=== PATIENT | female | born 1960 | race Caucasian/White ===

== ENCOUNTER 2020-09-10 15:09 | Outpatient (CLI) | payer OTHER, SELFPAY ==
--- NOTE | ~2020-09-10 | MM_ITS ---
EXAMINATION: MM screening aimee BI w shonna HISTORY: Screening TECHNIQUE: Craniocaudal and mediolateral oblique 3-D tomosynthesis images were obtained and synthetic 2-D images were generated. CAD analysis was submitted and interpreted. COMPARISON: Comparison to multiple prior studies sequentially, with oldest reviewed study dated 02/27. BREAST PARENCHYMAL COMPOSITION: There are scattered areas of fibroglandular density. FINDINGS: There is no evidence of suspicious mass, calcification, or architectural distortion to sugg est malignancy in either breast. There has been no suspicious interval change. IMPRESSION: 1. No mammographic evidence of malignancy. 2. Recommend routine screening mammography in one year. BI-RADS Category 1: Negative Reviewed, dictated and finalized at location A. IAL EDUCATION PARAPROFESSIONAL
== END 2020-09-10 15:10 | disposition home or self-care (01) ==
LOC: ANHIMG 15:12
PROVIDERS: PCP Family Medicine; Visit Provider Obstetrics & Gynecology
DX: Z12.31 Encounter for screening mammogram for malignant neoplasm of breast (principal)
CPT/HCPCS: 77063; 77067

== ENCOUNTER 2021-09-23 07:16 | Outpatient (CLI) | payer OTHER, SELFPAY ==
--- NOTE | ~2021-09-23 | MM_ITS ---
EXAMINATION: MM screening aimee BI w shonna HISTORY: Screening mammogram TECHNIQUE: Craniocaudal and mediolateral oblique 3-D tomosynthesis images were obtained and synthetic 2-D images were generated. CAD analysis was submitted and interpreted. COMPARISON: 10/02 2020, 08/28/2019, 08/25/2018 bilateral screening mammogram examinations BREAST PARENCHYMAL COMPOSITION: There are scattered areas of fibroglandular density. FINDINGS: There is no evidence of suspicious mass, calcification, or architectural distortion to sugg est malignancy in either breast. There has been no suspicious interval change. IMPRESSION: 1. No mammographic evidence of malignancy. 2. Recommend routine screening mammography in one year. BI-RADS Category 1: Negative Reviewed, dictated and finalized at location A. VIDEO EDITOR
== END 2021-09-23 07:17 | disposition home or self-care (01) ==
PROVIDERS: PCP Family Medicine; Visit Provider Obstetrics & Gynecology
DX: Z12.31 Encounter for screening mammogram for malignant neoplasm of breast (principal)
CPT/HCPCS: 77063; 77067

== ENCOUNTER 2022-11-19 07:47 | Outpatient (CLI) | payer OTHER, SELFPAY ==
--- NOTE | ~2022-11-19 | MM_ITS ---
EXAMINATION: MM screening aimee BI w shonna HISTORY: Screening TECHNIQUE: Craniocaudal and mediolateral oblique 3-D tomosynthesis images were obtained and synthetic 2-D images were generated. CAD analysis was submitted and interpreted. COMPARISON: Comparison to multiple prior studies sequentially, with oldest reviewed study dated 08/08. BREAST PARENCHYMAL COMPOSITION: There are scattered areas of fibroglandular density. FINDINGS: There is no evidence of suspicious mass, calcification, or architectural distortion to sugg est malignancy in either breast. There has been no suspicious interval change. IMPRESSION: 1. No mammographic evidence of malignancy. 2. Recommend routine screening mammography in one year. BI-RADS Category 1: Negative Reviewed, dictated and finalized at location A. NSED CHEMICAL SPRAY TECHNICIAN
== END 2022-11-19 07:48 | disposition home or self-care (01) ==
PROVIDERS: PCP Family Medicine; Visit Provider Obstetrics & Gynecology
DX: Z12.31 Encounter for screening mammogram for malignant neoplasm of breast (principal)
CPT/HCPCS: 77063; 77067

== ENCOUNTER 2024-01-31 07:49 | Outpatient (CLI) | payer MEDICARE, SELFPAY ==
--- NOTE | ~2024-01-31 | MM_ITS ---
EXAMINATION: MM screening aimee BI w shonna HISTORY: Screening mammogram TECHNIQUE: Craniocaudal and mediolateral oblique 3-D tomosynthesis images were obtained and synthetic 2-D images were generated. CAD analysis was submitted and interpreted. COMPARISON: 11/19/2022, 09/23/2021 bilateral screening mammogram examinations BREAST PARENCHYMAL COMPOSITION: There are scattered areas of fibroglandular density. FINDINGS: There is no evidence of suspicious mass, calcification, or architectural distortion to sugg est malignancy in either breast. There has been no suspicious interval change. IMPRESSION: 1. No mammographic evidence of malignancy. 2. Recommend routine screening mammography in one year. BI-RADS Category 1: Negative Reviewed, dictated and finalized at location A.
--- NOTE | ~2024-01-31 | DEXA_ITS ---
Bone Density Report Name: DHARA CAST Age: 63 Sex: Female Ethnicity: White Date of : 1960 Indication: postmenopausal; screening for osteoporosis; height loss; Referring Provider: LISA SAHNI Study: Bone densitometry was performed. Exam Date: January 31, 2024 Accession number: [id number] Bone Density: Region BMD T-score Z-score Classification AP Spine(L1-L4) 1.323 2.5 4.3 Normal Femoral Neck (Left) 1.085 2.1 3.7 Normal Total Hip (Left) 1.316 3.1 4.3 Normal Femoral Neck (Right) 1.097 2.2 3.8 Normal Total Hip (Right) 1.137 1.6 2.9 Normal Total Hip Mean 1.227 2.4 3.6 Normal World Health Organization criteria for BMD impression classify patients as: Normal (T-score at or above -1.0), Osteopenia (T-score between -1.0 and -2.5), or Osteoporosis (T-score at or below -2.5). 10-year Fracture Risk: FRAX not reported because: All T-scores for Spine Total, Hip Total, Femoral Neck at or above -1.0 Clinical Information Provided by Patient: Patient maximum height was 68 Menopause Age: 51 Drinks caffeinated beverages Onset of menses at age 10 Number of children 1 Impression: The patient has normal bone mass. Discussion: LOW RISK OF FRACTURE; BONE DENSITY IS WELL ABOVE THE MINIMUM DESIRABLE LEVEL AND ABOVE AVERAGE FOR AGE AND SEX AT ALL SKELETAL SITES TESTED. This person's bone density is above expected limits for age and sex. This is rarely clinically significant, but should be pursued if there are significant musculoskeletal complaints. The patient should follow a healthful lifestyle (good nutrition with adequate calcium and vitamin D, and appropriate weight-bearing exercise). Follow-Up: Consider repeating this study in 5 years or sooner if there is some new clinical indication. Reported by: ANGIE on 02/01/2024 3:30:00 PM. Reviewed, dictated and finalized at location AJoão WALSH
== END 2024-01-31 07:50 | disposition home or self-care (01) ==
LOC: ANHIMG 07:54
PROVIDERS: Visit Provider Obstetrics & Gynecology
DX: Z12.31 Encounter for screening mammogram for malignant neoplasm of breast (principal); M81.0 Age-related osteoporosis without current pathological fracture
CPT/HCPCS: 77063; 77067; 77080

== ENCOUNTER 2024-12-25 11:49 | Outpatient (CLI) | payer MEDICARE, SELFPAY ==
--- NOTE | ~2024-12-25 | US_ITS ---
EXAMINATION: US pelvic complete w TV INDICATION: Postmenopausal bleeding Comparison:No prior studies for comparison. TECHNIQUE: Multiple transabdominal and endovaginal sonographic images of the pelvis performed. FINDINGS: The uterus measures 5.6 x 3.5 x 4.1 cm. There is an echogenic focus in the uterus measuring 6 mm, likely due to underlying fibroid changes. The endometrial complex measures 3.4 mm. The ovaries are not visualized. There is no free fluid in the pelvis. There are no abnormal masses seen on either side. IMPRESSION: 1. 6 mm calcification in the uterus, likely related to fibroid changes. Reviewed, dictated and finalized at location B. ESALE BUYER
== END 2024-12-25 11:50 | disposition home or self-care (01) ==
LOC: MICIMG 11:50
PROVIDERS: Visit Provider Obstetrics & Gynecology
DX: N95.0 Postmenopausal bleeding (principal); D25.9 Leiomyoma of uterus, unspecified
CPT/HCPCS: 76830; 76856

== ENCOUNTER 2025-01-16 01:09 | Day surgery (SDC) | payer MEDICARE, SELFPAY ==
[2025-01-01 16:18] VITALS: BMI 45.9
--- NOTE | 2025-01-01 16:29 | PC.NURSE ---
Addendum entered by Yuki Morrell RN 01/03/25 15:00: Pt called to notify time change, pulled up in system, rereviewed new instructions w date and time for her, she understands JRElmaN see below Report to the Outpatient Waiting Room, entrance under the green pavilion located off [facility], at time __07:30am on date __01/16/25 . Planned Procedure Time: _06:00am .? Time changes happen often and if your time is changed the preop area will call you the afternoon before. - You and your visitor will be asked to self-screen and do not enter if you have any COVID symptoms. Please call surgeon if you need to reschedule. - A mask is optional within the hospital at this time. Patients may have clear liquids (water, carbonated beverages, clear teas, apple juice) until 3 hours prior to surgery with a maximum of 20 ounces. - No food from midnight until time of surgery and no smoking, or chewing tobacco (or any form of nicotine). No chewing gum, candy or mints. (0430am) Original Note: Report to the Outpatient Waiting Room, entrance under the green pavilion located off [facility], at time __1000am on date __01/16/25 . Planned Procedure Time: __1200 .? Time changes happen often and if your time is changed the preop area will call you the afternoon before. - You and your visitor will be asked to self-screen and do not enter if you have any COVID symptoms. Please call surgeon if you need to reschedule. - A mask is optional within the hospital at this time. Patients may have clear liquids (water, carbonated beverages, clear teas, apple juice) until 3 hours prior to surgery with a maximum of 20 ounces. - No food from midnight until time of surgery and no smoking, or chewing tobacco (or any form of nicotine). No chewing gum, candy or mints. (0900am) Take only the following medications with a SIP of water on the morning of surgery: _None DO NOT STOP ANY OF YOUR OTHER PRESCRIPTION MEDICATIONS PRIOR TO SURGERY EXCEPT THE FOLLOWING Dr Lucas to give instructions on Eliquis prior to surgery - to get instructions Hold all vitamins and supplements for 3 days per anesthesiologist.Date to take last dose 01/12/25 Please no make-up, nail latvian, hairspray, perfume, deodorant, or body powder the day of surgery.? No jewelry (including any body piercings) or valuables the day of surgery, leave them at home.? Please take a shower or bath the night before, or the morning of, surgery with an antibacterial soap.? Wear comfortable, loose fitting clothing.? - Jewelry must be removed prior to entering the operating room.? Rings and piercings that are not removed may be cut off. - The hospital will not accept responsibility for valuables.? - Please leave all valuables, including medications, at home the day of surgery. If you are going home after surgery, a licensed route sales delivery driver must drive you home.? - NO public transportation without another adult if you receive anesthesia. - We recommend that an adult stay with you for 24 hours following discharge. - We also recommend that you do not drive, make important decision, drink alcoholic beverages, or take any drugs that were not prescribed by your health care provider for at least 24 hours after your discharge time. Follow any additional instructions given to you from your surgeon. Telephone instructions given to __ Patient and asked if any additional questions and then verbalized understanding. Patient advised to call surgeon office or pre surgery nurse liaison [phone] if any additional questions.
--- OUTSIDE RECORDS SUMMARY | 2025-01-16 01:12 | XMS_ITS | Continuity of Care Document ---
Author Organization [facility] Address [address] [place] [address] Phone Care Team Providers Care Barrel Tester And Drainer Name Role Phone Taylor OD, French Unavailable Unavailable Procedures Procedure Date Eye Exam & Treatment Refraction Eye Exam & Treatment Refraction Office/outpatient Visit, Est Eye Exam Established Pt Progressive Lens, Plastic Frames Deluxe Tint Photochromatic, Plastic Tint Photochromatic, Plastic Eye Exam & Treatment Refraction Advance Directives Directive Yes / No Effective Date File Name No Information Encounters Encounter Description Practice Location Reason(s) For Visit Diagnoses Date Provider Providers Copied on Encounter [facility], [address] [place] [address] [address], [place], [place], [id number], tel:[phone] [facility] No Information 6-201 0 Taylor OD French. [address] , [address], [place], [address], [place]. tel:[phone] [facility], [address], [place], [place], [id number], [place] tel:[phone] [facility] No Information 9-200 9 Taylor OD French. [address] , [address], [place], [address], [place]. tel:[phone] Office/outpat ient Visit, Est [facility], [address], [place], [place], [id number], [place] tel:[phone] [facility] No Information 5-200 9 Taylro OD French. [address] , [address], [place], [place], [facility], . tel:[phone] [facility], [address], [place], [place], [address], [place] tel:[phone] [facility] No Information 5200 9 Taylor OD French. [address] , [address], [place], [address], [place]. tel:[phone] [facility], [id number] [place] [address] [address], [place], [place], [id number], [place] tel:[phone] [facility] No Information 0 8-200 8 [facility] . [address] [facility], [address], [place], [place], [id number], . tel:[phone] Referring Provider: French Taylor OD A, [facility], [place], [address]. tel:[phone] sulting Provider: Shante Newton, [address] [place] [address], [facility]. tel:[phone] [facility], [address] [place] [address] [address], [place], [place], [id number], [place] tel:[phone] [facility] No Information 0 3-200 8 Taylor OD French. [address] , [address], [place], [address], [place]. tel:[phone] Family History Family Member Type Diagnosis Age At Onset No Information Payers Payer name Insurance type Covered libertarian ID Lisa conde(s) [employer] Plan CI [id number] Social History Type Description Quantity Date Captured Comments Sex Female Smoking Status No Information Chief Complaint And Reason For Visit No Information Reason For Referral Reason For Referral No Information History Of Present Illness Encounter Date Complaint History Of Prese nt Illness No Information Functional Status Date Functional Assessmen t No Information Instructions Date Instruction Additional Infor mation No Information Assessments Type Assessment Date No Information Patient Care Teams Name Effective Dates (start - stop) Status Members No Information
--- OUTSIDE RECORDS SUMMARY | 2025-01-16 01:12 | XMS_ITS | Clinical Summary ---
Author Organization [facility] Address [address] [place] [id number] Care Team Providers Care Quarry Worker Name Role Phone Jorge Luis Elkins MD Primary Care Provider [phone] Allergies Active Allergy Reactions Criticality Noted Date Comments Cephalexin Other (See comments) Low 12/02/2023 Yeast infection Penicillins Diarrhea,Nausea only Low 01/27/2013 Medications Eliquis 5 mg tablet Take 1 tablet (5 mg total) by mouth 2 (two) times a day Active furosemide (LASIX) 20 mg tablet Take 1 tablet (20 mg total) by mouth daily 05/29/2024 Active multivitamin (Daily Multi-Vitamin) tablet Active niacin ER (NIASPAN) 500 mg CR tablet Take 1 tablet (500 mg total) by mouth 11/15/2015 Active nystatin powder APPLY TO AFFECTED AREA TWICE A DAY NEEDED FOR RASH 09/01/2023 Active potassium citrate 99 mg capsule Take 1 tablet by mouth daily as needed Active simvastatin (ZOCOR) 40 mg tablet Take 1 tablet (40 mg total) by mouth nightly Active ascorbic acid-collagen (Collagen Plus Vitamin C) 125-740 mg capsule Active fish,flaxseed oil-e.prim-bcur r 400-400-200 mg capsule Active glucosamine-cho ndroit-vit C-Mn capsule Take 1 capsule by mouth daily Active UNABLE TO FIND Take 1 Scoop by mouth daily Active OMEGA-3 FATTY ACIDS-FISH OIL ORAL Take by mouth daily Active Active Problems Problem Noted Date Diagnosed Date Cellulitis of left lower extremity 09/17/2023 Gastroesophageal reflux disease without esophagi tis 04/04/2021 Neck pain 07/12/2020 Knee pain 01/14/2018 Knee osteoarthritis 09/09/2015 Morbid obesity 09/09/2015 Dermatitis 02/27/2015 Knee pain, left 01/24/2015 Acute shoulder pain 08/07/2014 Hyperlipidemia 01/27/2013 Submucous leiomyoma of uterus 01/27/2013 Encounters Date Type Department Care Team Description 11/30/2024 8:00 AM CINDER CRANE OPERATOR Office Visit [facility] [address] [facility] [address] [place] [address] Megan Mayes PA Right knee pain, unspecified chronicity (Primary Dx); Left knee pain, unspecified chronicity; Primary osteoarthritis of knees, bilateral 11/30/2024 7:30 AM CINDER CRANE OPERATOR - 11/30/2024 11:59 PM CINDER CRANE OPERATOR Hospital Encounter [facility] [address] [facility] [address] [place] [id number] Right knee pain, unspecified chronicity; Left knee pain, unspecified chronicity Discharge Disposition: Discharge to home or self care from Last 3 Months Immunizations Immunization Administration Dates Next Due Influenza, Unspecified 08/22/2024,2022,08/17/2022,2020,08/12/2020,08/11/2018 [employer] ([employer]) SARS-CoV-2 Vaccination 05/16/2021 Pneumococcal Conjugate PCV 13 10/02/2019 RSV Vaccine, Pref, Recombina nt, Subunit, Adjuvanted, PF, IM (Arexvy) 08/02/2023 Tdap 05/30/2024 ZOSTER Recombinant 01/04/2020,10/26/2019 Family History Medical History Relation Name Comments Arthritis Other Family history of arthritis - (Added by TW Conv) Deep vein thrombosis Other Family history of deep venous thrombosis - (Added by TW Conv) Diabetes Other Family history of diabetes mellitus - (Added by TW Conv) Scoliosis Other Family history of scoliosis - (Added by TW Conv) Relation Name Status Comments Other Social History Tobacco Use Types Packs/Day Years Used Date Smoking Tobacco: Never Smokeless Tobacco: Never Tobacco Cessation:Counseling Given: Not Answered Comments Unknown Sex and Gender Information Value Date Recorded Sex Assigned at Not on file Legal Sex Female 11:19 AM CINDER CRANE OPERATOR Gender Identity Not on file Sexual Orientation Not on file Obstetrics History Last Filed Vital Signs Vital Sign Reading Time Taken Comments Blood Pressure - - Pulse - - Temperature - - Respiratory Rate - - Oxygen Saturation - - Inhaled Oxygen Concentration - - Weight 140.6 kg (310 lb) 11/30/2024 8:32 AM CINDER CRANE OPERATOR Height 172.7 cm (5' 8 ) 11/30/2024 8:32 AM CINDER CRANE OPERATOR Body Mass Index 47.14 11/30/2024 8:32 AM CINDER CRANE OPERATOR Plan of Treatment Health Maintenance Due Date Last Done Comments Breast Cancer Screening-Mammogram 1960 Colon Cancer Screening-Colonoscopy 1960 Depression Screening 1960 Fall Risk Assessment 1960 Hepatitis C Screening 1960 Osteoporosis Screening-Bone Density Scan 1960 Hepatitis B Screening 1976 Pneumococcal vaccine 65+ (2 of 2 - PPSV23) 10/02/2020 10/02/2019 Well Visit 65+ 2023 Covid-19 Vaccine (3 - 2023-2 5 season) 2024 11/07/2021, 05/16/2021 DTaP/Tdap/Td Vaccine (2 - Td or Tdap) 05/30/2034 05/30/2024 Zoster Vaccine Completed 01/04/2020, 10/26/2019 Influenza Vaccine Completed 08/22/2024, , 08/17/2022, Additional history exists Procedures Procedure Name Priority Date/Time Associated Diagnosis Comments XR KNEE LEFT 4 OR MORE VIEWS Schedule Routine, Read Routine (OP Routine) 11/30/2024 8:05 AM CINDER CRANE OPERATOR Left knee pain, unspecified chronicity XR KNEE RIGHT 4 OR MORE VIEWS Schedule Routine, Read Routine (OP Routine) 11/30/2024 8:05 AM CINDER CRANE OPERATOR Right knee pain, unspecified chronicity MA ARTHROCENTESIS ASPIR&/INJ MAJOR JT/BURSA W/O US Routine 11/30/2024 8:00 AM CINDER CRANE OPERATOR Primary osteoarthritis of knees, bilateral from Last 3 Months Results * XR Knee Right 4 or More Views (11/30/2024 8:05 AM CINDER CRANE OPERATOR) Anatomical Region Laterality Modality Lower Extremities, Knee Right Computed Radiography 11/30/2024 8:08 AM CINDER CRANE OPERATOR Impressions 11/30/2024 8:08 AM CINDER CRANE OPERATOR 1. Progressive severe medial compartment predominant tricompartmental osteoarthritis of both knees. Electronically signed by: Bj Mack M.D. Narrative 11/30/2024 8:08 AM CINDER CRANE OPERATOR EXAMINATION: XR KNEE RIGHT 4 OR MORE VIEWS, XR KNEE LEFT 4 OR MORE VIEWS HISTORY: Bilateral knee pain FINDINGS: 4 view examination of the right and left knee are read with comparison to 01/24/2018. There is progressive severe medial compartment predominant tricompartmental osteoarthritis of both knees with uqru-ge-izju contact bilaterally. Trace bilateral joint effusions. Small ossific loose bodies in the posterior intercondylar notch on the right. The no fracture or dislocation. Procedure Note Bj Byrd MD - 11/30/2024 EXAMINATION: XR KNEE RIGHT 4 OR MORE VIEWS, XR KNEE LEFT 4 OR MORE VIEWS HISTORY: Bilateral knee pain FINDINGS: 4 view examination of the right and left knee are read with comparison to 01/24/2018. There is progressive severe medial compartment predominant tricompartmental osteoarthritis of both knees with rwrq-aq-nvxv contact bilaterally. Trace bilateral joint effusions. Small ossific loose bodies in the posterior intercondylar notch on the right. The no fracture or dislocation. IMPRESSION: 1. Progressive severe medial compartment predominant tricompartmental osteoarthritis of both knees. Electronically signed by: Bj Mack M.D. Megan SALVADOR IMG XR PROCEDURES Astrid l Result * XR Knee Left 4 or More Views (11/30/2024 8:05 AM CINDER CRANE OPERATOR) Anatomical Region Laterality Modality Lower Extremities, Knee Left Computed Radiography 11/30/2024 8:08 AM CINDER CRANE OPERATOR Impressions 11/30/2024 8:08 AM CINDER CRANE OPERATOR 1. Progressive severe medial compartment predominant tricompartmental osteoarthritis of both knees. Electronically signed by: Bj Mack M.D. Narrative 11/30/2024 8:08 AM CINDER CRANE OPERATOR EXAMINATION: XR KNEE RIGHT 4 OR MORE VIEWS, XR KNEE LEFT 4 OR MORE VIEWS HISTORY: Bilateral knee pain FINDINGS: 4 view examination of the right and left knee are read with comparison to 01/24/2018. There is progressive severe medial compartment predominant tricompartmental osteoarthritis of both knees with vutj-as-cpov contact bilaterally. Trace bilateral joint effusions. Small ossific loose bodies in the posterior intercondylar notch on the right. The no fracture or dislocation. Procedure Note Bj Byrd MD - 11/30/2024 EXAMINATION: XR KNEE RIGHT 4 OR MORE VIEWS, XR KNEE LEFT 4 OR MORE VIEWS HISTORY: Bilateral knee pain FINDINGS: 4 view examination of the right and left knee are read with comparison to 01/24/2018. There is progressive severe medial compartment predominant tricompartmental osteoarthritis of both knees with nqfb-ja-oibp contact bilaterally. Trace bilateral joint effusions. Small ossific loose bodies in the posterior intercondylar notch on the right. The no fracture or dislocation. IMPRESSION: 1. Progressive severe medial compartment predominant tricompartmental osteoarthritis of both knees. Electronically signed by: Bj Mack M.D. us Megan SALVADOR IMG XR PROCEDURES Astrid l Result * MA ARTHROCENTESIS ASPIR&/INJ MAJOR JT/BURSA W/O US (11/30/2024 8:00 AM CINDER CRANE OPERATOR) Narrative Megan Mayes PA - 11/30/2024 8:00 AM CINDER CRANE OPERATOR Megan Mayes PA 11/30/2024 9:10 AM Large Joint Injection: R knee Performed by: Megan Mayes PA Authorized by: Megan Mayes PA Large Joint Injection/Aspiration: Consent Given by: Patient Site marked: the procedure site was marked Verbal consent obtained: Yes Supporting Documentation: Indications: Pain Procedure Details: Location: Knee Site: R knee Prep: patient was prepped and draped in usual sterile fashion Needle Size: 22 G Approach: Superior lateral Medications: 80 mg triamcinolone 40 mg/mL; 4 mL BUPivacaine HCl 0.25 % (2.5 mg/mL) Patient tolerance: Patient tolerated the procedure well with no immediate complications us Megan SALVADOR IN CLINIC/BEDSIDE [facility] Final Result from Last 3 Months Insurance T MEDICARE AET MEDICARE Care Teams Quarry Worker Relationship Specialty Start Date End Date Jorge Luis Elkins MD PCP - General Family Practice 06/26/24
--- OUTSIDE RECORDS SUMMARY | 2025-01-16 01:12 | XMS_ITS | Clinical Summary ---
Author Organization [facility] Address [address] [place] [address] Care Team Providers Care Rivet Hammer Machine Operator Name Role Phone Jorge Luis Elkins MD Primary Care Provider [phone] Ovi Lucas MD Unavailable Jorge Luis Barcenas MD Unavailable [phone] Placido Rodriguez DPPratibha Unavailable [phone] Duy Grande MD Unavailable [phone] Allergies Active Allergy Reactions Criticality Noted Date Comments Cephalexin Other (see comment) 12/02/2023 Yeast infection Penicillins Diarrhea,Nausea Only 01/27/2013 Medications Glucosamine-Chondr oit-Vit C-Mn (GLUCOSAMINE CHONDR 1500 COMPLX) Cap Take 1 capsule by mouth daily. Active Multiple Vitamins tablet Take 1 tablet by mouth daily. Active niacin CR 500 MG tablet Take 1 tablet (500 mg total) by mouth. 11/15/19 16 Active Hannah, Morinda citrifolia, (HANNAH JUICE) 3000 MG/30ML Liquid Activ e [place]-3 Fatty Acids (FISH OIL) 645 MG Cap Take by mouth daily. Active Potassium Citrate 99 MG Cap Take 2 tablets by mouth daily as needed (When taking furosemide). Active nystatin (MYCOSTATIN) powder APPLY TO AFFECTED AREA TWICE A DAY NEEDED FOR RASH 09/01/20 23 Active NON FORMULARY Take 1 Scoop by mouth daily. Collagen Peptides Power- Mix with water Active furosemide (LASIX) 20 MG tabletIndications: Localized edema Take 1 tablet (20 mg total) by mouth daily. 90 tablet 2 05/29/20 24 Active Additional Information Patient not taking.Reported on 12/06/2024 apixaban (ELIQUIS) 5 MG tabletIndications: Deep vein thrombosis (DVT) of proximal lower extremity, unspecified chronicity, unspecified laterality (CMS/HCC HHS/HCC) Take 1 tablet (5 mg total) by mouth 2 (two) times daily. 180 tablet 1 08/15/20 24 Active Collagen-Vitamin C (COLLAGEN PLUS VITAMIN C) 740-125 MG Cap Active simvastatin (ZOCOR) 40 MG tabletIndications: Mixed hyperlipidemia Take 1 tablet (40 mg total) by mouth nightly at bedtime. at bedtime 90 tablet 1 12/06/19 25 Active Active Problems Problem Noted Date Diagnosed Date Cellulitis of left lower extremity 09/17/2023 Gastroesophageal reflux disease without esophagi tis 04/04/2021 Neck pain 07/12/2020 Knee osteoarthritis 09/09/2015 Morbid obesity 09/09/2015 Dermatitis 02/27/2015 Knee pain, left 01/24/2015 Acute shoulder pain, unspecified laterality 07/11 Hyperlipidemia 01/27/2013 Submucous leiomyoma of uterus 01/27/2013 Resolved Problems Problem Noted Date Diagnosed Date Resolved Date Encounter for preventive health examination 01/27/2013 07/19/2020 Encounters Date Type Department Care Team Description 12/25/2024 Scan HEALTH INFO SRVCS Scanned, Doc [facility] Ultrasound (SCAN) 12/06/2024 8:00 AM SLUBBER FRAME CHANGER Office Visit [facility] Family Medicine [place] [phone] Jorge Luis Elkins MD Back Pain (Patient is present for follow up to her back pain) 12/06/2024 Travel 12/02/2024 Patient Outreach [facility] Medicine [place] [phone] Jorge Luis Elkins MD Pre-visit Gap Closure from Last 3 Months Immunizations Name Administration Dates Next Due Arexvy Respiratory Syncytial Virus (RSV, adjuvanted) 0.5 mL, PF 08/02/2023 Influenza (Generic) 08/11/2018 Influenza Adult (Generic) 08/22/2024,04/2023,08/17/2022,2020,08/12/2020 OSVALDO (CINTHYA & CINTHYA) COVID-19 AD26 VACCINE 0.5 ML IM SUSP 05/16/2021 MODERNA COVID-19 (FAMILY SERVICE ASSISTANT MICHELLE YESI), MRNA, LNP-S, PF, 50 MCG/ 0.25 ML DOSE 11/07/2021 Pneumococcal (Prevnar 13) 10/02/2019 Shingrix 01/04/2020,10/26/2019 Tdap (Generic) 05/30/2024 Family History Medical History Relation Comments colon polyps Father Diabetes Mother colon polyps Mother Diabetes Paternal Grandfather Relation Status Comments Father Alive Mother Paternal Grandfather Social History Tobacco Use Types Packs/Day Years Used Date Smoking Tobacco: Never Passive Smoke Exposure: Past Smokeless Tobacco: Never Tobacco Cessation:Counseling Given: No Alcohol Use Standard Drinks/Week Comments No 0 (1 standard drink = 0.6 oz pur e alcohol) AUDIT-C Answer Date Recorded Frequency of Alcohol Consumption Never 09/06/2019 Average Number of Drinks Not on file 019 Frequency of Binge Drinking Not on file 08/10 PHQ-2 Answer Date Recorded Patient Health Questionnaire-2 Score 0 12/06/2024 Comments No Sex and Gender Information Value Date Recorded Sex Assigned at Not on file Legal Sex Female 8:13 PM CDT Gender Identity Not on file Sexual Orientation Not on file Occupation Industry Job Start Date Job End Date [employer] Not on file Not on file Not on file Last Filed Vital Signs Vital Sign Reading Time Taken Comments Blood Pressure 134/84 12/06/2024 8:21 AM SLUBBER FRAME CHANGER Pulse 74 12/06/2024 8:04 AM SLUBBER FRAME CHANGER Temperature 36.4 C (97.6 F) 12/06/2024 8:04 AM SLUBBER FRAME CHANGER Respiratory Rate 98 12/06/2024 8:04 AM SLUBBER FRAME CHANGER Oxygen Saturation 98% 09/12/2024 9:40 AM SLUBBER FRAME CHANGER Inhaled Oxygen Concentration - - Weight 139.8 kg (308 lb 3.2 oz) 12/06/2024 8:04 AM SLUBBER FRAME CHANGER Height 172.7 cm (5' 8 ) 07/26/2024 1:33 PM CDT Body Mass Index 46.86 07/26/2024 1:33 PM CDT Plan of Treatment Upcoming Encounters Date Type Department Care Team (Late st Contact Info) Description 06/11/2025 8:00 AM CDT Office Visit [facility] Family [facility] - [place] [address] [place] [phone] Jorge Luis Elkins MD [address] [place] [address] Health Maintenance Due Date Last Done Comments Hepatitis C 1978 Annual Medicare Wellness Visit 2023 Pneumococcal Vaccine: 65+ Years (2 of 2 - PPSV23 or PCV20) 2023 10/02/2019 COVID-19 Vaccine (3 - 2023- season) 2024 11/07/2021, 05/16/2021 Mammogram Screening 01/30/2026 01/31/2024, 11/19/2022, 09/10/2020 Colorectal Cancer Screening Colonoscopy (10 Years) 12/09/2026 12/09/2016 DTaP, Tdap and Td Vaccines (2 - Td or Tdap) 05/30/2034 05/30/2024 Zoster Vaccines Completed 01/04/2020, 10/26/2019 RSV Immunization or 60+ Years Completed 08/02/2023 Dexa Scan (General) Completed 01/31/2024 Influenza Adult Completed 08/22/2024, 04/2023, 08/17/2022, Additional history exists PHQ-2 (Physician [place]) Completed 12/06/2024 Meningococcal B Vaccine Aged Out No l onger eligible based on patient's age to complete this topic Meningococcal Vaccine Aged Out No vandana zaida eligible based on patient's age to complete this topic RSV Immunizations Under 20 Months Aged Out No longer eligible based on patient's age to complete this topic Procedures Procedure Name Priority Date/Time Associated Diagnosis Comments ULTRASOUND GENERIC (SCAN ORDER) 12/25/2024 BONE DENSITY GENERIC (SCAN ORDER) 01/31/2024 MAMMOGRAM GENERIC (SCAN ORDER) Routine 01/31/2024 COLONOSCOPY Routine 12/09/2016 12:00 AM SLUBBER FRAME CHANGER from Last 3 Months or Most Recently Relevant to Health Maintenance Results * ULTRASOUND GENERIC (SCAN ORDER) (12/25/2024) Anatomical Region Laterality Modality Other 12/25/2024 us [facility] Scanned SCANNING Final Resu lt * BONE DENSITY GENERIC (SCAN ORDER) (01/31/2024) Anatomical Region Laterality Modality Other 01/31/2024 us Doc Med Group Scanned SCANNING Final Resu lt * MAMMOGRAM (01/31/2024) Anatomical Region Laterality Modality Other us Doc Med Group Scanned SCANNING Final Resu lt * Colonoscopy (12/09/2016 12:00 AM SLUBBER FRAME CHANGER) 12/09/2016 12/09/2016 Narrative TOUCHWORKS TO EPIC CONVERSION - 12/09/2016 12:00 AM SLUBBER FRAME CHANGER Documented hx of procedure Procedure Note , Generic ConversionMD - 01/26/2019 Documented hx of procedure us Generic Conversion Md [facility] PROCEDURE ORDERABLES Final Result TOUCHWORKS TO EPIC CONVERSION from Last 3 Months or Most Recently Relevant to Health Maintenance Insurance AETNA AETNA Care Teams Rivet Hammer Machine Operator Relationship Specialty Start Date End Date Jorge Luis Elkins MD [address] [place] [id number] PCP - General FAMILY PRACTICE 12/02/23 Ovi Lucas MD [id number] [place] [address] OBGYN 12/02/23 Jorge Luis Barcenas MD [address] [place] [phone] Referring Physician PLASTIC SURGERY 12/02/23 Placido Rodriguez DPM [facility] [place] [address] [place] [address] PODIATRY/SURGERY 12/02/23 Duy Grande MD [address] [place] [address] Referring Physician DERMATOLOGY 12/02/23
--- OUTSIDE RECORDS SUMMARY | 2025-01-16 01:12 | XMS_ITS | Referral Summary ---
Author Organization [facility] Address [address] [place] [phone] Care Team Providers Care Architect Naval Name Role Phone Jorge Luis Elkins MD Primary Care Provider [phone] Encounters Date Type Department Care Team Description 11/30/2024 7:30 AM REGISTERED NURSE SUPERVISOR - 11/30/2024 11:59 PM REGISTERED NURSE SUPERVISOR Hospital Encounter [id number] [address] [place] [address] [address] [place] [address] Right knee pain, unspecified chronicity; Left knee pain, unspecified chronicity Discharge Disposition: Discharge to home or self care 11/30/2024 8:00 AM REGISTERED NURSE SUPERVISOR Office Visit [facility] Orthopaedic Surgery [address] [facility] [address] [place] [address] Megan Mayes PA Right knee pain, unspecified chronicity (Primary Dx); Left knee pain, unspecified chronicity; Primary osteoarthritis of knees, bilateral from Last 3 Months Allergies Active Allergy Reactions Criticality Noted Date [...] Hyperlipidemia 01/27/2013 Submucous leiomyoma of uterus 01/27/2013 Immunizations Immunization Administration Dates Next Due Influenza, Unspecified 08/22/2024,2022,08/17/2022,2020,08/12/2020,08/11/2018 Wiser (formerly WisePricer) (J&J) SARS-CoV-2 Vaccination 05/16/2021 Pneumococcal Conjugate PCV 13 10/02/2019 RSV Vaccine, Pref, Recombina nt, Subunit, Adjuvanted, PF, IM (Arexvy) 08/02/2023 Tdap 05/30/2024 ZOSTER Recombinant 01/04/2020,10/26/2019 Social History Tobacco Use Types Packs/Day Years Used Date Smoking Tobacco: Never Smokeless Tobacco: Never Tobacco Cessation:Counseling Given: Not Answered Comments Unknown Sex and Gender Information Value Date Recorded Sex Assigned at Not on file Legal Sex Female 11:19 AM REGISTERED NURSE SUPERVISOR Gender Identity Not on file Sexual Orientation Not on file Last Filed Vital Signs Vital Sign Reading Time Taken Comments Blood Pressure - - Pulse - - Temperature - - Respiratory Rate - - Oxygen Saturation - - Inhaled Oxygen Concentration - - Weight 140.6 kg (310 lb) 11/30/2024 8:32 AM REGISTERED NURSE SUPERVISOR Height 172.7 cm (5' 8 ) 11/30/2024 8:32 AM REGISTERED NURSE SUPERVISOR Body Mass Index 47.14 11/30/2024 8:32 AM REGISTERED NURSE SUPERVISOR Plan of Treatment Not on file Procedures Procedure Name Priority Date/Time Associated Diagnosis Comments XR KNEE LEFT 4 OR MORE VIEWS Schedule Routine, Read Routine (OP Routine) 11/30/2024 8:05 AM REGISTERED NURSE SUPERVISOR Left knee pain, unspecified chronicity XR KNEE RIGHT 4 OR MORE VIEWS Schedule Routine, Read Routine (OP Routine) 11/30/2024 8:05 AM REGISTERED NURSE SUPERVISOR Right knee pain, unspecified chronicity DE ARTHROCENTESIS ASPIR&/INJ MAJOR JT/BURSA W/O US Routine 11/30/2024 8:00 AM REGISTERED NURSE SUPERVISOR Primary osteoarthritis of knees, bilateral from Last 3 Months Results * XR Knee Right 4 or More Views (11/30/2024 8:05 AM REGISTERED NURSE SUPERVISOR) Anatomical Region Laterality Modality Lower Extremities, Knee Right Computed Radiography 11/30/2024 8:08 AM REGISTERED NURSE SUPERVISOR Impressions 11/30/2024 8:08 AM REGISTERED NURSE SUPERVISOR 1. Progressive severe medial compartment predominant tricompartmental osteoarthritis of both knees. Electronically signed by: Bj Mack M.D. Narrative 11/30/2024 8:08 AM REGISTERED NURSE SUPERVISOR EXAMINATION: XR KNEE RIGHT 4 OR MORE VIEWS, XR KNEE LEFT 4 OR MORE VIEWS HISTORY: Bilateral knee pain FINDINGS: 4 view examination of the right and left knee are read with comparison to 01/24/2018. There is progressive severe medial compartment predominant tricompartmental osteoarthritis of both knees with fxqz-vs-eody contact bilaterally. Trace bilateral joint effusions. Small ossific loose bodies in the posterior intercondylar notch on the right. The no fracture or dislocation. Procedure Note Philip Mack, Bj Taylor MD - 11/30/2024 EXAMINATION: XR KNEE RIGHT 4 OR MORE VIEWS, XR KNEE LEFT 4 OR MORE VIEWS HISTORY: Bilateral knee pain FINDINGS: 4 view examination of the right and left knee are read with comparison to 01/24/2018. There is progressive severe medial compartment predominant tricompartmental osteoarthritis of both knees with ulvz-xb-leno contact bilaterally. Trace bilateral joint effusions. Small ossific loose bodies in the posterior intercondylar notch on the right. The no fracture or dislocation. IMPRESSION: 1. Progressive severe medial compartment predominant tricompartmental osteoarthritis of both knees. Electronically signed by: Bj Mack M.D. Megan SALVADOR IMG XR PROCEDURES Astrid l Result * XR Knee Left 4 or More Views (11/30/2024 8:05 AM REGISTERED NURSE SUPERVISOR) Anatomical Region Laterality Modality Lower Extremities, Knee Left Computed Radiography 11/30/2024 8:08 AM REGISTERED NURSE SUPERVISOR Impressions 11/30/2024 8:08 AM REGISTERED NURSE SUPERVISOR 1. Progressive severe medial compartment predominant tricompartmental osteoarthritis of both knees. Electronically signed by: Bj Mack M.D. Narrative 11/30/2024 8:08 AM REGISTERED NURSE SUPERVISOR EXAMINATION: XR KNEE RIGHT 4 OR MORE VIEWS, XR KNEE LEFT 4 OR MORE VIEWS HISTORY: Bilateral knee pain FINDINGS: 4 view examination of the right and left knee are read with comparison to 01/24/2018. There is progressive severe medial compartment predominant tricompartmental osteoarthritis of both knees with jarr-os-naew contact bilaterally. Trace bilateral joint effusions. Small [...] predominant tricompartmental osteoarthritis of both knees with ifhy-gs-uvxo contact bilaterally. Trace bilateral joint effusions. Small ossific loose bodies in the posterior intercondylar notch on the right. The no fracture or dislocation. IMPRESSION: 1. Progressive severe medial compartment predominant tricompartmental osteoarthritis of both knees. Electronically signed by: Bj Mack M.D. us Megan SALVADOR IMG XR PROCEDURES Astrid l Result * DE ARTHROCENTESIS ASPIR&/INJ MAJOR JT/BURSA W/O US (11/30/2024 8:00 AM REGISTERED NURSE SUPERVISOR) Narrative Megan Mayes PA - 11/30/2024 8:00 AM REGISTERED NURSE SUPERVISOR Megan Mayes PA 11/30/2024 9:10 AM Large [...] the procedure well with no immediate complications Megan SALVADOR IN CLINIC/BEDSIDE [facility] Final Result from Last 3 Months Insurance [facility] MEDICARE AETNA MEDICARE Care Teams Architect Naval Relationship Specialty Start Date End Date Jorge Luis Elkins MD PCP - General Family Practice 06/26/24
--- NOTE | 2025-01-16 02:09 | PM.IMHP ---
H&P: HPI History of Present Illness Date/Time: 01/16/25 02:09 Chief Complaint: Bleeding Narrative: 64 y/o with postmenopausal bleeding. Ultrasound shows a 3.4 mm thick endometrial complex. There is no free fluid. There is a 6 mm calcification in the uterus. Review of Systems Review of Systems: All systems reviewed & are unremarkable except as noted in HPI and below PMFSH Past Medical History Medical History History of DVT (deep vein thrombosis) History of chronic hypertension History of hyperlipidemia Surgical History Surgical History History of knee surgery History of toe surgery History of carpal tunnel surgery Social History Social History Smoking status: Never smoker Alcohol intake: never Substance use: never Living arrangements: alone Spiritual care concerns: No Meds Home Medications and Allergies Home Medications ?Medication ?Instructions ?Recorded ?Confirmed ?Type apixaban 5 mg tablet (Eliquis) 5 mg PO Q12H 01/01/25 01/01/25 History furosemide 20 mg tablet 20 mg PO DAILY 01/01/25 01/01/25 History niacin 500 mg capsule,extended 500 mg PO HS 01/01/25 01/01/25 History release simvastatin 40 mg tablet 40 mg PO QPM 01/01/25 01/01/25 History Allergies Allergy/AdvReac Type Severity Reaction Status Date / Time cephalexin AdvReac Intermediate yeast Verified 01/01/25 16:13 infection Penicillins AdvReac Intermediate nausea Verified 01/01/25 16:13 NKFA Allergy Intermediate Nausea Uncoded 01/01/25 16:13 1.AMOXICILLIN AdvReac Intermediate nausea Uncoded 01/01/25 16:13 Exam Const: Orientation/consciousness: patient oriented x3 Other: Well-developed, well-nourished female in no acute distress. Neck: Thyroid: thyroid normal Lymphatic: no lymphadenopathy noted (in neck, axilla or inguinal nodes) Resp: Effort & Inspection: normal respiratory effort Auscultation: clear to auscultation bilaterally Cardio: Rate: regular rate Rhythm: regular rhythm Heart sounds: S1 normal heart sound present and S2 normal heart sound present GI: Other: ABD: Soft, nontender, nondistended. No guarding or rebound tenderness. No hepatosplenomegaly. : General: Yes no CVA tenderness Other: External genitalia: normal female hair distribution, without lesion. Urethral meatus: no lesion, non prolapsed. Bladder: no mass, nontender Vagina: well-estrogenized, without lesion or discharge. No cystocele or rectocele. Cervix: no lesion or discharge. Uterus: small, anteverted, freely mobile, nontender Adnexa: no mass or tenderness. Anus/perineum: no lesions, nontender Back/Spine/Pelvis: Back: no CVA tenderness Skin: General skin exam: normal color and no rashes or lesions noted Neuro: General: patient oriented x3 Extrem: Other: Extremities: nontender with no edema Psych: Mental Status: mental status grossly normal Affect: normal affect Assessment and Plan Assessment and plan (1) Postmenopausal bleeding: Code(s): N95.0 - Postmenopausal bleeding Status: Acute Assessment and Plan: A: Postmenopausal bleeding. P: I have offered hysteroscopy with dilation and sharp curettage. She understands risks of surgery to include risks of anesthesia, risks of pain, infection, bleeding, blood products, thromboembolic phenomena and damage to adjacent structures such as bowel, bladder, ureters, blood vessels and nerves. She understands all these risks and elects to proceed with surgery.
[2025-01-16] MEDS: ACETAMINOPHEN 500 MG TABLET 1000 MG PO (07:00)
[2025-01-16] MEDS: LACTATED RINGERS 1,000 ML 30 ML IV CONT (07:00)
--- NOTE | 2025-01-16 07:22 | P.PNAN_ITS ---
Anes - Initial Pre Proc Eval Procedure: Operation Date: 01/16/25 08:30 Proposed Procedures p Hysteroscopy Dilation and Curettage - Ovi Lucas MD Date/Time: 01/16/25 07:22 Surgeon: Ovi Lucas MD Pre Op Diagnosis: Post Menopausal Bleeding Patient Data Age: 64 Gender: F Height: 1.73 m Weight: 137 kg Allergies Allergy/AdvReac Type Severity Reaction Status Date / Time cephalexin AdvReac Intermediate yeast Verified 01/01/25 16:13 infection Penicillins AdvReac Intermediate nausea Verified 01/01/25 16:13 NKFA Allergy Intermediate Nausea Uncoded 01/01/25 16:13 1.AMOXICILLIN AdvReac Intermediate nausea Uncoded 01/01/25 16:13 Home Medications ?Medication ?Instructions ?Recorded ?Confirmed ?Type apixaban 5 mg tablet (Eliquis) 5 mg PO Q12H 01/01/25 01/01/25 History furosemide 20 mg tablet 20 mg PO DAILY 01/01/25 01/01/25 History niacin 500 mg capsule,extended 500 mg PO HS 01/01/25 01/01/25 History release simvastatin 40 mg tablet 40 mg PO QPM 01/01/25 01/01/25 History Patient hx anesthesia problems: none Family hx anesthesia problems: none Results Review: All pre-operative results and documents have been reviewed as part of the pre-operative evaluation. [facility] Past Medical History Medical History History of DVT (deep vein thrombosis) History of chronic hypertension History of hyperlipidemia Surgical History Surgical History History of knee surgery History of toe surgery History of carpal tunnel surgery Social History Social History Smoking status: Never smoker Alcohol intake: never Substance use: never Living arrangements: alone Spiritual care concerns: No Anes - Eval Final PreProcedure Day of Procedure 01/16/25 07:22 Patient weight: morbidly obese Heart: regular rate and rhythm Lungs: clear to auscultation Airway: Mallampati scale class II Neurological: alert and oriented Last oral intake: >/= 8 hours ASA classification: III Emergent: no Anesthetic plan: proceed Anesthesia type and monitoring: general GIVS and standard monitoring Results Review: All pre-operative results and documents have been reviewed as part of the pre- operative evaluation. Informed Consent: The patient's anesthetic plan and its attendant risks and benefits were discussed with the patient/family/POA. Questions were solicited and answers provided to the satisfaction of the patient/family/POA.
[2025-01-16 07:30] VITALS: BP 147/82; PULSE 71; RESP 16; TEMP 36.6; O2SAT 100
--- NOTE | 2025-01-16 08:28 | WPDHPUPDATE1 ---
History and Physical Update Update Date/Time: 01/16/25 08:28 History and Physical has been reviewed, including an updated exam of the patient. There are NO changes in the patient's condition. Risks, benefits, and alternatives have been discussed and questions answered. Patient agrees to proceed with procedure.
[2025-01-16] MEDS: LIDOCAINE 1% LOCAL INJ 10 ML VIAL INFILTRATE (08:49)
--- NOTE | 2025-01-16 08:56 | W.PM.PROC2 ---
Procedure Note - Detailed Date of Procedure 01/16/25 Pre-op Diagnosis Post Menopausal Bleeding Post-op Diagnosis Same Procedure Performed Hysteroscopy Dilation and sharp curettage Surgeon Ovi Lucas MD Anesthesia MAC and Local (1% lidocaine) Findings Atrophic endometrium. Both tubal ostia seen. Description of Procedure The patient was taken to the operating room where she was prepared and draped in the usual sterile fashion in the dorsal lithotomy position. The bladder was drained with a red rubber catheter. A sterile speculum was placed into the vagina. The anterior lip of the cervix was grasped with single-tooth tenaculum. Ten mL of 1% lidocaine was administered in a paracervical block. The cervix was then gently dilated using Hegar dilators until a 7 mm dilator could be passed. Hysteroscopy was performed using sterile saline as a distention medium. Findings are as noted above. Sharp curettage was then performed, and endometrial curettings were collected on a Telfa pad and passed off to be sent to pathology. Hemostasis was excellent. Sponge, lap, needle and instrument counts were correct. The patient was awakened and taken to the recovery room in stable condition. I was present and scrubbed through the entire procedure. Implants None Estimated Blood Loss 5 Drains No Packing No Pathology Yes (Endometrial curettings) Complications None Condition Stable Disposition PACU
[2025-01-16 08:58] VITALS: BP 113/57; PULSE 78; RESP 16; O2SAT 98
[2025-01-16 09:25] VITALS: BP 113/57; PULSE 78
[2025-01-16 09:55] VITALS: BP 147/86; PULSE 67
== END 2025-01-16 10:10 | disposition home or self-care (01) ==
PROVIDERS: Visit Provider Obstetrics & Gynecology
PROC: 0U5B8ZZ Destruction of Endometrium, Via Natural or Artificial Opening Endoscopic (ICD-10-PCS; CPT 58563; principal; 2025-01-16 08:30)
DX: N95.0 Postmenopausal bleeding (principal); N85.8 Other specified noninflammatory disorders of uterus; E66.01 Morbid (severe) obesity due to excess calories; Z68.42 Body mass index [BMI] 45.0-49.9, adult
CPT/HCPCS: 58558; 88305; A9270; J2003; J2704; J3010; J7120

== ENCOUNTER 2025-02-16 07:49 | Outpatient (CLI) | payer MEDICARE, SELFPAY ==
--- NOTE | ~2025-02-16 | MM_ITS ---
EXAMINATION: MM screening aimee BI w shonna HISTORY: Screening TECHNIQUE: Craniocaudal and mediolateral oblique 3-D tomosynthesis images were obtained and synthetic 2-D images were generated. CAD analysis was submitted and interpreted. COMPARISON: Comparison to multiple prior studies sequentially, with oldest reviewed study dated 08/08. BREAST PARENCHYMAL COMPOSITION: Not dense: There are scattered areas of fibroglandular density. FINDINGS: There is no evidence of suspicious mass, calcification, or architectural distortion to sugg est malignancy in either breast. There has been no suspicious interval change. IMPRESSION: 1. No mammographic evidence of malignancy. 2. Recommend routine screening mammography in one year. BI-RADS Category 1: Negative Reviewed, dictated and finalized at location A.
--- OUTSIDE RECORDS SUMMARY | 2025-02-16 07:54 | XMS_ITS | Clinical Summary ---
Author Organization [facility] Address [address] [place] [phone] Care Team Providers Care Reel Man Name Role Phone Jorge Luis Elkins MD Primary Care Provider [phone] Allergies Active Allergy Reactions Criticality Noted Date [...] Department Care Team Description 11/30/2024 8:00 AM MARBLEIZER Office Visit [facility] Orthopaedic Surgery [address] [facility] [address] [place] [address] Megan Mayes PA Right knee pain, unspecified chronicity (Primary Dx); Left knee pain, unspecified chronicity; Primary osteoarthritis of knees, bilateral 11/30/2024 7:30 AM MARBLEIZER - 11/30/2024 11:59 PM MARBLEIZER Hospital Encounter [facility] [address] [facility] [address] [place] [phone] Right knee pain, unspecified chronicity; Left knee pain, unspecified chronicity Discharge Disposition: Discharge to home or self care from Last 3 Months Immunizations Immunization Administration Dates Next Due Influenza, Unspecified 08/22/2024,2022,08/17/2022,2020,08/12/2020,08/11/2018 Grokr (J&J) SARS-CoV-2 Vaccination 05/16/2021 Pneumococcal Conjugate PCV [...] on file Legal Sex Female 11:19 AM MARBLEIZER Gender Identity Not on file Sexual Orientation Not on file Obstetrics History Last Filed Vital Signs Vital Sign Reading Time Taken Comments Blood Pressure - - Pulse - - Temperature - - Respiratory Rate - - Oxygen Saturation - - Inhaled Oxygen Concentration - - Weight 140.6 kg (310 lb) 11/30/2024 8:32 AM MARBLEIZER Height 172.7 cm (5' 8 ) 11/30/2024 8:32 AM MARBLEIZER Body Mass Index 47.14 11/30/2024 8:32 AM MARBLEIZER Plan of Treatment Health Maintenance Due Date [...] Read Routine (OP Routine) 11/30/2024 8:05 AM MARBLEIZER Left knee pain, unspecified chronicity XR KNEE RIGHT 4 OR MORE VIEWS Schedule Routine, Read Routine (OP Routine) 11/30/2024 8:05 AM MARBLEIZER Right knee pain, unspecified chronicity ME ARTHROCENTESIS ASPIR&/INJ MAJOR JT/BURSA W/O US Routine 11/30/2024 8:00 AM MARBLEIZER Primary osteoarthritis of knees, bilateral from Last 3 Months Results * XR Knee Right 4 or More Views (11/30/2024 8:05 AM MARBLEIZER) Anatomical Region Laterality Modality Lower Extremities, Knee Right Computed Radiography 11/30/2024 8:08 AM MARBLEIZER Impressions 11/30/2024 8:08 AM MARBLEIZER 1. Progressive severe medial compartment predominant tricompartmental osteoarthritis of both knees. Electronically signed by: Bj Mack M.D. Narrative 11/30/2024 8:08 AM MARBLEIZER EXAMINATION: XR KNEE RIGHT 4 OR MORE VIEWS, XR KNEE LEFT 4 OR MORE VIEWS HISTORY: Bilateral knee pain FINDINGS: 4 view examination of the right and left knee are read with comparison to 01/24/2018. There is progressive severe medial compartment predominant tricompartmental osteoarthritis of both knees with fzmm-ap-vhoj contact bilaterally. Trace bilateral joint effusions. Small [...] predominant tricompartmental osteoarthritis of both knees with cpyn-vh-tgxx contact bilaterally. Trace bilateral joint effusions. Small ossific loose bodies in the posterior intercondylar notch on the right. The no fracture or dislocation. IMPRESSION: 1. Progressive severe medial compartment predominant tricompartmental osteoarthritis of both knees. Electronically signed by: Bj Mack M.D. Megan SALVADOR IMG XR PROCEDURES Astrid l Result * XR Knee Left 4 or More Views (11/30/2024 8:05 AM MARBLEIZER) Anatomical Region Laterality Modality Lower Extremities, Knee Left Computed Radiography 11/30/2024 8:08 AM MARBLEIZER Impressions 11/30/2024 8:08 AM MARBLEIZER 1. Progressive severe medial compartment predominant tricompartmental osteoarthritis of both knees. Electronically signed by: Bj Mack M.D. Narrative 11/30/2024 8:08 AM MARBLEIZER EXAMINATION: XR KNEE RIGHT 4 OR MORE VIEWS, XR KNEE LEFT 4 OR MORE VIEWS HISTORY: Bilateral knee pain FINDINGS: 4 view examination of the right and left knee are read with comparison to 01/24/2018. There is progressive severe medial compartment predominant tricompartmental osteoarthritis of both knees with vmwo-xa-btfs contact bilaterally. Trace bilateral joint effusions. Small [...] predominant tricompartmental osteoarthritis of both knees with hiur-mm-pyyg contact bilaterally. Trace bilateral joint effusions. Small ossific loose bodies in the posterior intercondylar notch on the right. The no fracture or dislocation. IMPRESSION: 1. Progressive severe medial compartment predominant tricompartmental osteoarthritis of both knees. Electronically signed by: Bj Mack M.D. us Megan SALVADOR IMG XR PROCEDURES Astrid l Result * ME ARTHROCENTESIS ASPIR&/INJ MAJOR JT/BURSA W/O US (11/30/2024 8:00 AM MARBLEIZER) Narrative Megan Mayes PA - 11/30/2024 8:00 AM MARBLEIZER Megan Mayes PA 11/30/2024 9:10 AM Large [...] Insurance T MEDICARE AET MEDICARE Care Teams Reel Man Relationship Specialty Start Date End Date Jorge Luis Elkins MD PCP - General Family Practice 06/26/24
--- OUTSIDE RECORDS SUMMARY | 2025-02-16 07:54 | XMS_ITS | Referral Summary ---
Author Organization [facility] Address [address] [place] [address] Care Team Providers Care Quality Control Analyst Name Role Phone Jorge Luis Elkins MD Primary Care Provider [phone] Encounters Date Type Department Care Team Description 11/30/2024 7:30 AM EXERCISE TEACHER - 11/30/2024 11:59 PM EXERCISE TEACHER Hospital Encounter [facility] [address] [place] [address] [address] [place] [address] Right knee pain, unspecified chronicity; Left knee pain, unspecified chronicity Discharge Disposition: Discharge to home or self care 11/30/2024 8:00 AM EXERCISE TEACHER Office Visit [facility] Orthopaedic Surgery [address] [facility] [address] [place] [address] Megan Mayes PA Right knee [...] Administration Dates Next Due Influenza, Unspecified 08/22/2024,2022,08/17/2022,2020,08/12/2020,08/11/2018 PurePlay (J&J) SARS-CoV-2 Vaccination 05/16/2021 Pneumococcal Conjugate PCV [...] on file Legal Sex Female 11:19 AM EXERCISE TEACHER Gender Identity Not on file Sexual Orientation Not on file Last Filed Vital Signs Vital Sign Reading Time Taken Comments Blood Pressure - - Pulse - - Temperature - - Respiratory Rate - - Oxygen Saturation - - Inhaled Oxygen Concentration - - Weight 140.6 kg (310 lb) 11/30/2024 8:32 AM EXERCISE TEACHER Height 172.7 cm (5' 8 ) 11/30/2024 8:32 AM EXERCISE TEACHER Body Mass Index 47.14 11/30/2024 8:32 AM EXERCISE TEACHER Plan of Treatment Not on file Procedures Procedure Name Priority Date/Time Associated Diagnosis Comments XR KNEE LEFT 4 OR MORE VIEWS Schedule Routine, Read Routine (OP Routine) 11/30/2024 8:05 AM EXERCISE TEACHER Left knee pain, unspecified chronicity XR KNEE RIGHT 4 OR MORE VIEWS Schedule Routine, Read Routine (OP Routine) 11/30/2024 8:05 AM EXERCISE TEACHER Right knee pain, unspecified chronicity MA ARTHROCENTESIS ASPIR&/INJ MAJOR JT/BURSA W/O US Routine 11/30/2024 8:00 AM EXERCISE TEACHER Primary osteoarthritis of knees, bilateral from Last 3 Months Results * XR Knee Right 4 or More Views (11/30/2024 8:05 AM EXERCISE TEACHER) Anatomical Region Laterality Modality Lower Extremities, Knee Right Computed Radiography 11/30/2024 8:08 AM EXERCISE TEACHER Impressions 11/30/2024 8:08 AM EXERCISE TEACHER 1. Progressive severe medial compartment predominant tricompartmental osteoarthritis of both knees. Electronically signed by: Bj Mack M.D. Narrative 11/30/2024 8:08 AM EXERCISE TEACHER EXAMINATION: XR KNEE RIGHT 4 OR MORE VIEWS, XR KNEE LEFT 4 OR MORE VIEWS HISTORY: Bilateral knee pain FINDINGS: 4 view examination of the right and left knee are read with comparison to 01/24/2018. There is progressive severe medial compartment predominant tricompartmental osteoarthritis of both knees with oobd-bi-dowp contact bilaterally. Trace bilateral joint effusions. Small [...] predominant tricompartmental osteoarthritis of both knees with lurq-wj-bbxz contact bilaterally. Trace bilateral joint effusions. Small ossific loose bodies in the posterior intercondylar notch on the right. The no fracture or dislocation. IMPRESSION: 1. Progressive severe medial compartment predominant tricompartmental osteoarthritis of both knees. Electronically signed by: Bj Mack M.D. Megan SALVADOR IMG XR PROCEDURES Astrid l Result * XR Knee Left 4 or More Views (11/30/2024 8:05 AM EXERCISE TEACHER) Anatomical Region Laterality Modality Lower Extremities, Knee Left Computed Radiography 11/30/2024 8:08 AM EXERCISE TEACHER Impressions 11/30/2024 8:08 AM EXERCISE TEACHER 1. Progressive severe medial compartment predominant tricompartmental osteoarthritis of both knees. Electronically signed by: Bj Mack M.D. Narrative 11/30/2024 8:08 AM EXERCISE TEACHER EXAMINATION: XR KNEE RIGHT 4 OR MORE VIEWS, XR KNEE LEFT 4 OR MORE VIEWS HISTORY: Bilateral knee pain FINDINGS: 4 view examination of the right and left knee are read with comparison to 01/24/2018. There is progressive severe medial compartment predominant tricompartmental osteoarthritis of both knees with bcnk-ho-gvik contact bilaterally. Trace bilateral joint effusions. Small [...] predominant tricompartmental osteoarthritis of both knees with ovcd-eu-ghvb contact bilaterally. Trace bilateral joint effusions. Small ossific loose bodies in the posterior intercondylar notch on the right. The no fracture or dislocation. IMPRESSION: 1. Progressive severe medial compartment predominant tricompartmental osteoarthritis of both knees. Electronically signed by: Bj Mack M.D. us Megan SALVADOR IMG XR PROCEDURES Astrid l Result * MA ARTHROCENTESIS ASPIR&/INJ MAJOR JT/BURSA W/O US (11/30/2024 8:00 AM EXERCISE TEACHER) Narrative Megan Mayes PA - 11/30/2024 8:00 AM EXERCISE TEACHER Megan Mayes PA 11/30/2024 9:10 AM Large [...] Final Result from Last 3 Months Insurance [facility] MEDICARE AETNA MEDICARE Care Teams Quality Control Analyst Relationship Specialty Start Date End Date Jorge Luis Elkins MD PCP - General Family Practice 06/26/24
--- OUTSIDE RECORDS SUMMARY | 2025-02-16 07:54 | XMS_ITS | Clinical Summary ---
Author Organization [facility] Address [address] [place] [address] Care Team Providers Care Water Resource Engineering Specialist Name Role Phone Jorge Luis Elkins MD Primary Care Provider [phone] Ovi Lucas MD Unavailable [phone] Jorge Luis Barcenas MD Unavailable [phone] Placido Rodriguez DPPratibha Unavailable [phone] Duy Grande MD Unavailable [phone] Allergies Active Allergy Reactions Criticality Noted Date [...] (HANNAH JUICE) 3000 MG/30ML Liquid Activ e [place]-3 Fatty Acids (FISH OIL) 645 MG Cap [...] Encounters Date Type Department Care Team Description 01/16/2025 Scan HEALTH INFO SRVCS Scanned, [facility] Procedure (SCAN) 12/25/2024 Scan HEALTH INFO SRVCS Scanned, [facility] Ultrasound (SCAN) 12/06/2024 8:00 AM COOLER MAN Office Visit [address] [phone] Jorge Luis Elkins MD Back Pain (Patient is present for follow up to her back pain) 12/06/2024 Travel 12/02/2024 Patient Outreach [address] [phone] Jorge Luis Elkins MD Pre-visit Gap Closure from Last 3 Months Immunizations Name Administration Dates Next Due Arexvy Respiratory Syncytial Virus (RSV, adjuvanted) 0.5 mL, PF 08/02/2023 Influenza (Generic) 08/11/2018 Influenza Adult (Generic) 08/22/2024,04/2023,08/17/2022,2020,08/12/2020 OSVALDO (CINTHYA & CINTHYA) COVID-19 AD26 VACCINE 0.5 ML IM SUSP 05/16/2021 MODERNA COVID-19 (HOSPICE AIDE MICHELLE YESI), MRNA, LNP-S, PF, 50 MCG/ [...] Comments Blood Pressure 134/84 12/06/2024 8:21 AM COOLER MAN Pulse 74 12/06/2024 8:04 AM COOLER MAN Temperature 36.4 C (97.6 F) 12/06/2024 8:04 AM COOLER MAN Respiratory Rate 98 12/06/2024 8:04 AM COOLER MAN Oxygen Saturation 98% 09/12/2024 9:40 AM COOLER MAN Inhaled Oxygen Concentration - - Weight 139.8 kg (308 lb 3.2 oz) 12/06/2024 8:04 AM COOLER MAN Height 172.7 cm (5' 8 ) 07/26/2024 1:33 PM CDT Body Mass Index 46.86 07/26/2024 1:33 PM CDT Plan of Treatment Upcoming Encounters Date Type Department Care Team (Late st Contact Info) Description 06/11/2025 8:00 AM CDT Office Visit [facility] Family Medicine - [address] [place] [phone] Jorge Luis Elkins MD [address] [place] [address] Health Maintenance Due Date Last Done Comments Hepatitis C 1978 Annual Medicare Wellness Visit 2023 Pneumococcal Vaccine: 65+ Years (2 of 2 - PPSV23 or PCV20) 2023 10/02/2019 COVID-19 Vaccine (3 - 2023-2 5 season) 2024 11/07/2021, 05/16/2021 Mammogram Screening 01/30/2026 01/31/2024, 11/19/2022, 09/10/2020 Colorectal Cancer Screening Colonoscopy (10 Years) 12/09/2026 12/09/2016 DTaP, Tdap and Td Vaccines ( 2 - Td or Tdap) 05/30/2034 05/30/2024 Zoster Vaccines Completed 01/04/2020, 10/26/2019 RSV Immunization or 60+ Years Completed 08/02/2023 Dexa Scan (General) Completed 01/31/2024 PHQ-2 (Physician [place]) Completed 12/06/2024 Meningococcal B Vaccine Aged Out No l onger eligible based on patient's age to complete this topic Meningococcal Vaccine Aged Out No vandana zaida eligible based on patient's age to complete this topic RSV Immunizations Under 20 Months Aged Out No longer eligible b ased on patient's age to complete this topic Procedures Procedure Name Priority Date/Time Associated Diagnosis Comments PROCEDURE GENERIC (SCAN ORDER) 01/16/2025 ULTRASOUND GENERIC (SCAN ORDER) 12/25/2024 BONE DENSITY GENERIC (SCAN ORDER) 01/31/2024 MAMMOGRAM GENERIC (SCAN ORDER) Routine 01/31/2024 COLONOSCOPY Routine 12/09/2016 12:00 AM COOLER MAN from Last 3 Months or Most Recently Relevant to Health Maintenance Results * PROCEDURE GENERIC (SCAN ORDER) (01/16/2025) 01/16/2025 us [facility] Scanned SCANNING Final Resu lt * ULTRASOUND GENERIC (SCAN ORDER) (12/25/2024) Anatomical [...] Resu lt * Colonoscopy (12/09/2016 12:00 AM COOLER MAN) 12/09/2016 12/09/2016 Narrative TOUCHWORKS TO EPIC CONVERSION - 12/09/2016 12:00 AM COOLER MAN Documented hx of procedure Procedure Note Khoa Quevedo MD - 01/26/2019 Documented hx of procedure Generic Conversion Md QUEVEDO GI PROCEDURE ORDERABLES Final Result TOUCHWORKS TO EPIC CONVERSION from Last 3 Months or Most Recently Relevant to Health Maintenance Insurance AETNA AETNA Care Teams Water Resource Engineering Specialist Relationship Specialty Start Date End Date Jorge Luis Elkins MD [address] [place] [id number] PCP - General FAMILY PRACTICE 12/02/23 Ovi Lucas MD [address] [facility] [place] [address] OBGYN 12/02/23 Jorge Luis Barcenas MD [address] [facility] [place] [address] Referring Physician PLASTIC SURGERY 12/02/23 Placido Rodriguez [place] [address] PODIATRY/SURGERY 12/02/23 Duy Grande MD [address] [id number] Referring Physician DERMATOLOGY 12/02/23
--- OUTSIDE RECORDS SUMMARY | 2025-02-16 07:54 | XMS_ITS | Continuity of Care Document ---
Author Organization [facility] Address [address] [place] [address] Phone Care Team Providers Care Hand Leather Trimmer Name Role Phone Taylor OD, French Unavailable [...] Diagnoses Date Provider Providers Copied on Encounter [facility], [address] [place] [address] [address], [place], [place], [id number], tel:[phone] [facility] No Information [phone] 0 Taylor OD French. [address] , [address], [place], [address], [place]. tel:[phone] [facility], [address], [place], [place], [id number], [place] tel:[phone] [facility] No Information 9-200 9 Taylor OD French. [address] , [address], [place], [address], [place]. tel:[phone] Office/outpat ient Visit, Est [facility], [address], [place], [place], [id number], [place] tel:[phone] [facility] No Information 5-200 9 Taylor OD French. [address] , [address], [place], [place], [facility], . tel:[phone] [facility], [address], [place], [place], [id number], [place] tel:[phone] [facility] No Information 5200 9 Taylor OD French. [address] , [address], [place], [address], [place]. tel:[phone] [facility], [id number] [place] [address] [address], [place], [place], [id number], [place] tel:[phone] [facility] No Information [phone] [facility] [employer] . [address] [facility], [address], [place], [place], [id number], . tel:[phone] Referring Provider: French Taylor OD A, [facility], [place], [address]. tel:[phone] sulting Provider: Shante Newton, [address] [place] [address], [facility]. tel:[phone] [facility], [address] [place] [address] [address], [place], [place], [id number], [place] tel:[phone] [facility] No Information 0 [phone] Taylor OD French. [address] , [address], [place], [address], [place]. tel:[phone] Family History Family Member Type Diagnosis Age At Onset No Information Payers Payer name Insurance type Covered libertarian ID Lisa conde(s) [employer] Plan CI [id number] Social History Type Description Quantity Date Captured [...]
== END 2025-02-16 07:50 | disposition home or self-care (01) ==
PROVIDERS: Visit Provider Obstetrics & Gynecology
DX: Z12.31 Encounter for screening mammogram for malignant neoplasm of breast (principal)
CPT/HCPCS: 77063; 77067